=== PATIENT | female | born 1945 | race Hispanic/Latino ===

== ENCOUNTER 2016-09-28 06:30 | Day surgery (SDC) | payer MEDICARE, BC ==
[2016-09-23 08:14] VITALS: BMI 26.0
[2016-09-28] MEDS ORDERED: Phenylephrine 10 mg/ml Inj ONE (07:57)
[2016-09-28] MEDS ORDERED: Propofol 10 mg/ml Inj (20 ML) ONE ×2 (07:57→08:54)
[2016-09-28] MEDS ORDERED: ePHEDrine 50 mg/ml Inj ONE (07:57)
[2016-09-28] MEDS ORDERED: Sodium Chloride 0.9% 1,000 ML IV SCH (08:15)
[2016-09-28 09:30] VITALS: TEMP 98
[2016-09-28 10:14] VITALS: BP 128/48; PULSE 56; RESP 17; O2SAT 99
--- NOTE | 2016-09-29 12:30 | CP.PCM.PN ---
Subjective - Date & Time of Evaluation Date of Evaluation: 09/29/16 Time of Evaluation: 12:25 - Subjective Subjective: Briefly, 71 y/o F presenting on 09-28-16 for EGD and Colonoscopy. Error in anesthesia narcotic documentation. During procedure patient was administered a total of 100mcg fentanyl, however, only 50mcg was documented on the anesthesia record. This discrepancy was brought to my attention by dept. of pharmacy. Objective - Vital Signs/Intake and Output Vital Signs (last 24 hours): Temp Pulse Resp BP Pulse Ox 98 F 56 L 17 128/48 L 99 09/28/16 09:57 09/28/16 09:57 09/28/16 09:57 09/28/16 09:57 09/28/16 09:57
== END 2016-09-28 11:00 | disposition home or self-care (01) ==
LOC: ENDO 06:30
PROVIDERS: ATTEND Internal Medicine
DX: D12.3 Benign neoplasm of transverse colon (principal); D17.79 Benign lipomatous neoplasm of other sites; K64.8 Other hemorrhoids; Z85.038 Personal history of other malignant neoplasm of large intestine; K29.50 Unspecified chronic gastritis without bleeding; K21.9 Gastro-esophageal reflux disease without esophagitis; R00.2 Palpitations; R26.9 Unspecified abnormalities of gait and mobility; M70.70 Other bursitis of hip, unspecified hip; E04.9 Nontoxic goiter, unspecified; M20.10 Hallux valgus (acquired), unspecified foot; E78.2 Mixed hyperlipidemia; J20.9 Acute bronchitis, unspecified; Z86.010 Personal history of colon polyps; Z80.3 Family history of malignant neoplasm of breast; Z87.891 Personal history of nicotine dependence; F15.90 Other stimulant use, unspecified, uncomplicated; Z88.1 Allergy status to other antibiotic agents; Z88.0 Allergy status to penicillin; Z88.8 Allergy status to other drugs, medicaments and biological substances; K80.20 Calculus of gallbladder without cholecystitis without obstruction
CPT/HCPCS: 43239; 45380; 88305; 88312; 88342; J2001; J2370; J2704; J3010; J7040 ×2

== ENCOUNTER 2016-11-30 11:22 | Inpatient (IN) | payer MEDICARE, BC ==
[2016-11-30 11:22] VITALS: BMI 26.0
[2016-11-30] MEDS ORDERED: guaiFENesin 200 mg/10 ml Syrup UD PO STA (12:01)
[2016-11-30] MEDS ORDERED: Levalbuterol 1.25 MG/3 ML Inhal Soln UD IH STA ×2 (12:01→12:02)
[2016-11-30] MEDS ORDERED: Ipratropium 0.02% Inhal Soln (0.5 mg/2.5 ml) UD IH STA (12:01)
--- NOTE | 2016-11-30 12:07 | ED PDOC ---
Arrival/HPI - General Chief Complaint: Cough, Cold, Congestion Time Seen by Provider: 11/30/16 11:25 Historian: Patient - History of Present Illness Narrative History of Present Illness (Text): 11/30/16 11:53 A 71 year old female, whose past medical history includes rheumatoid arthritis, COPD, osteoporosis, and osteoarthritis b/l knees, presents to the emergency department complaining of progressive shortness of breath and persistent cough for 1 month. Patient reports symptoms have worsened for the past few days. Patient notes also experiencing dizziness, but denies of any chest pain, abdominal pain, nausea, vomiting, visual changes, or any other complaints. Also patient mentions she recently finished her Medrol dose pack but has had no relief. She has also used prescribed cough syrup and abx without relief. PMD: Dr. Austin Time/Duration: Other (has had symptoms for 1 month, worsened past few days) Symptom Onset: Gradual Symptom Course: Unchanged Context: Home Past Medical History - Provider Review Nursing Documentation Reviewed: Yes - Infectious Disease Hx of Infectious Diseases: None - Tetanus Immunization Tetanus Immunization: Unknown - Cardiac Hx Pacemaker: No - Pulmonary Hx Respiratory Disorders: Yes Hx Asthma: Yes Hx Bronchitis: Yes Hx Chronic Obstructive Pulmonary Disease (COPD): Yes Hx Respiratory Tract Infection: Yes - Neurological Hx Neurological Disorder: No - HEENT Hx HEENT Disorder: No - Renal Hx Renal Disorder: No - Endocrine/Metabolic Hx Endocrine Disorders: No - Hematological/Oncological Hx Blood Transfusions: No Hx Blood Transfusion Reaction: No - Integumentary Hx Dermatological Disorder: No - Musculoskeletal/Rheumatological Hx Musculoskeletal Disorders: Yes (OSTEO/RA) - Gastrointestinal Hx Gastrointestinal Disorders: No - Genitourinary/Gynecological Hx Genitourinary Disorders: No - Psychiatric Hx Emotional Abuse: No Hx Physical Abuse: No Hx Substance Use: No - Surgical History Other/Comment: breast tumor removed 30 yrs ago - Anesthesia Hx Anesthesia Reactions: Yes (VOMITING) Hx Malignant Hyperthermia: No - Suicidal Assessment Feels Threatened In Home Enviroment: No Family/Social History - Physician Review Nursing Documentation Reviewed: Yes Family/Social History: No Known Family HX Smoking Status: Former Smoker Hx Alcohol Use: No (OCC/NONE SINCE 06/2016) Hx Substance Use: No Allergies/Home Meds Allergies/Adverse Reactions: Allergies clarithromycin [From Biaxin] Allergy (Severe, Verified 09/23/16 08:17) ANAPHYLAXIS Penicillins Allergy (Severe, Verified 09/23/16 08:17) ANAPHYLAXIS SEAFOOD Allergy (Intermediate, Uncoded 09/23/16 08:17) RASH SHELLFISH Allergy (Intermediate, Uncoded 09/23/16 08:17) RASH Home Medications: Home Meds Medication Instructions Recorded Confirmed Alprazolam [Xanax] 0.5 mg PO PRN PRN 09/23/16 11/30/16 Ascorbic Acid [Vitamin C] 1,000 mg PO DAILY 09/23/16 11/30/16 Aspirin [Adult Low Dose Aspirin EC] 81 mg PO DAILY 09/23/16 11/30/16 Folic Acid 1 mg PO DAILY 09/23/16 11/30/16 Methotrexate 20 mg PO FRI 09/23/16 11/30/16 Omeprazole 20 mg PO QAM 09/23/16 11/30/16 Vitamin B Complex [Vitamin B 1 tab PO DAILY 09/23/16 11/30/16 Complex] Albuterol 0.083% [Albuterol 0.083% 2.5 mg INH TID 11/30/16 11/30/16 Inhal Lia (2.5 mg/3 ml) UD] Review of Systems - Physician Review All systems were reviewed & negative as marked: Yes - Review of Systems Eyes: absent: Vision Changes Respiratory: SOB (progressive shortness of breath ), Cough (persistent coughing) Cardiovascular: absent: Chest Pain Gastrointestinal: absent: Abdominal Pain, Nausea, Vomiting Neurological: Dizziness. absent: Headache Physical Exam Vital Signs Reviewed: Yes Vital Signs Temp Pulse Resp BP Pulse Ox 11/30/16 13:28 81 24 142/90 98 11/30/16 11:33 28 H 99 11/30/16 11:32 98.0 F 106 H 17 153/89 H 100 Temperature: Afebrile Blood Pressure: Hypertensive Pulse: Tachycardic Respiratory Rate: Tachypneic Appearance: Positive for: Other (patient appears anxious with persistent cough) Pain Distress: None Mental Status: Positive for: Alert and Oriented X 3 - Systems Exam Head: Present: Atraumatic, Normocephalic Pupils: Present: PERRL Conjunctiva: Present: Normal Mouth: Present: Moist Mucous Membranes Pharnyx: Present: Normal. No: ERYTHEMA, EXUDATE Neck: Present: Normal Range of Motion Respiratory/Chest: Present: Clear to Auscultation, Decreased Breath Sounds ( slightly). No: Respiratory Distress, Accessory Muscle Use Cardiovascular: Present: Normal S1, S2, Tachycardic. No: Murmurs Abdomen: Present: Normal Bowel Sounds. No: Tenderness, Distention, Peritoneal Signs Back: Present: Normal Inspection Upper Extremity: Present: Normal Inspection. No: Cyanosis, Edema Lower Extremity: Present: Normal Inspection. No: Edema Neurological: Present: GCS=15, CN II-XII Intact, Speech Normal Skin: Present: Warm, Dry, Normal Color. No: Rashes Psychiatric: Present: Alert, Oriented x 3, Normal Insight, Normal Concentration Medical Decision Making ED Course and Treatment: 11/30/16 11:58 Impression: 71 year old female with progressive shortness of breath and persistent cough. Differential Diagnosis included but are not limited to: URI vs. Pneumonia vs. COPD Exacerbation vs. Methotrexate Pulmonary Toxicity Plan: -- EKG -- Chest CT -- Labs -- Xanax -- Robitussin -- Atrovert -- Xopenex -- Medrol -- Reassess and disposition Prior Visits: Notes and results from previous visits were reviewed Progress Notes: EKG: Ordered, reviewed, and independently interpreted the EKG. Rate : 74 BPM Rhythm : NSR Interpretation : No ST-segment elevations or depressions, no T-wave inversions, normal intervals. Comparison : No previous EKG for comparison. 11/30/2016 13:[address] IMPRESSION: No interstitial abnormality identified. Small focal infiltrate in the anterior left lower lobe, minimally increased in prominence compared to examination of 03/13/2013, accounting for differences in technique. Given the lack of significant interval slubber frame changer greater than 3 years, this is unlikely to represent a bronchoalveolar cell carcinoma. Nevertheless, continued surveillance is advised. Dictator : Wing Paris MD 11/30/16 13:58 Patient with noted history; minimal improvement despite nebs; CT as noted with small infiltrate - will place on iv steroids given that she failed outpatient steroid therapy. Will add abx. Per Dr. Tomlinson, the patient is to be placed in the hospital as he discussed with hospitalist previously. Case discussed with Dr. Rivera. - Lab Interpretations Lab Results: 11/30/16 12:21 11/30/16 12:21 Lab Results 11/30/16 12:21: Sodium 141, Potassium 4.2, Chloride 104, Carbon Dioxide 21, Anion Gap 20, BUN 21, Creatinine 0.8, Est GFR ( Amer) > 60, Est GFR (Non- Af Amer) > 60, Random Glucose 100, Calcium 9.8, Magnesium 1.8, Total Bilirubin 0.5, AST 32, ALT 36, Alkaline Phosphatase 72, Lactate Dehydrogenase 445, Total Creatine Kinase 144, Troponin I < 0.01, NT-Pro-B Natriuret Pep 176, Total Protein 7.5, Albumin 4.5, Globulin 3.0, Albumin/Globulin Ratio 1.5, Lipase 180 11/30/16 12:21: PT 10.6, INR 0.98, APTT 22.6 L 11/30/16 12:21: WBC 13.2 H, RBC 4.39, Hgb 13.3, Hct 39.1, MCV 89.1, MCH 30.3, MCHC 34.0, RDW 13.6, Plt Count 367, MPV 8.7, Gran % 78.0 H, Lymph % (Auto) 16.6 L, [facility] [place] [facility] % (Auto) 4.9, Eos % (Auto) 0.2 L, Baso % (Auto) 0.3, Gran # 10.25 H, Lymph # 2.2, [facility] [place] [facility] # 0.7 H, Eos # 0.0, Baso # 0.04 I have reviewed the lab results: Yes - RAD Interpretation Radiology Orders: 11/30/16 12:02 CHEST W/O & HIGH RES CHEST [CT] Stat - Medication Orders Current Medication Orders: Levofloxacin/Dextrose (Levaquin 750mg) 750 mg IVPB ONCE STA Stop: 11/30/16 14:03 Discontinued Medications Alprazolam (Xanax) 0.125 mg PO STAT STA PRN Reason: Protocol Stop: 11/30/16 12:03 Last Admin: 11/30/16 12:31 Dose: Guaifenesin (Robitussin) 600 mg PO ONCE STA Stop: 11/30/16 12:02 Last Admin: 11/30/16 12:22 Dose: 600 mg Ipratropium Brohard (Atrovent) 0.5 mg IH STAT STA Stop: 11/30/16 12:02 Last Admin: 11/30/16 13:12 Dose: 0.5 mg Levalbuterol HCl (Xopenex) 1.25 mg IH STAT STA Stop: 11/30/16 12:02 Last Admin: 11/30/16 12:23 Dose: 1.25 mg Levalbuterol HCl (Xopenex) 1.25 mg IH STAT STA Stop: 11/30/16 12:03 Last Admin: 11/30/16 13:27 Dose: 1.25 mg Methylprednisolone (Solu-Medrol) 125 mg IVP STAT STA Stop: 11/30/16 12:02 Last Admin: 11/30/16 12:22 Dose: 125 mg IVP Administration Document 11/30/16 12:22 [place] (Rec: 11/30/16 12:22 [facility]) Charges for Administration # of IVP Administrations 1 - Scribe Statement The provider has reviewed the documentation as recorded by the Katty Macdonald Provider Scribe Attestation: All medical record entries made by the Scribe were at my direction and personally dictated by me. I have reviewed the chart and agree that the record accurately reflects my personal performance of the history, physical exam, medical decision making, and the department course for this patient. I have also personally directed, reviewed, and agree with the discharge instructions and disposition. Disposition/Present on Arrival - Present on Arrival Any Indicators Present on Arrival: No History of DVT/PE: No History of Uncontrolled Diabetes: No Urinary Catheter: No History of Decub. Ulcer: No History Surgical Site Infection Following: None - Disposition Have Diagnosis and Disposition been Completed?: Yes Diagnosis: Dyspnea, COPD exacerbation Disposition: HOSPITALIZED Disposition Time: 13:45 Patient Plan: Observation Condition: FAIR Referrals: Maribel Ornelas MD [Primary Care Provider] - Follow up with primary Forms: [employer] (Kazakh)
[2016-11-30 12:28] LABS: BASO # 0.04 K/mm3 (0.0-2.0); BASO % 0.3 % (0.0-3.0); EOS % 0.2 % (1.5-5.0); GRAN # 10.25 (1.4-6.5); HEMATOCRIT 39.1 % (36.0-48.0); LYMPH # 2.2 (1.2-3.4); LYMPH % 16.6 % (22.0-35.0); MEAN CELL VOLUME 89.1 fl (80.0-105.0); MEAN CORPUSCULAR HEMOGLOBIN 30.3 pg (25.0-35.0); MEAN PLATELET VOLUME 8.7 fl (7.0-11.0); MONO # 0.7 (0.1-0.6); MONO % 4.9 % (1.0-6.0); RED CELL DISTRIBUTION WIDTH 13.6 % (11.5-14.5); WHITE BLOOD COUNT 13.2 10^3/ul (4.5-11.0)
[2016-11-30 12:36] LABS: ALB/GLOB RATIO 1.5 (1.1-1.8); ALKALINE PHOSPHATASE 72 U/L (38-126); ALT/SGPT 36 U/L (7-56); AST/SGOT 32 U/L (14-36); BILIRUBIN,TOTAL 0.5 mg/dL (0.2-1.3); BLOOD UREA NITROGEN 21 mg/dL (7-21); CALCIUM 9.8 mg/dL (8.4-10.5); CARBON DIOXIDE 21 mmol/L (21-33); CHLORIDE 104 mmol/L (98-107); GFR AFRICAN-AMERICAN > 60; GLUCOSE,RANDOM 100 mg/dL (70-110); INR 0.98 (0.93-1.08); LIPASE 180 U/L (23-300); MAGNESIUM 1.8 mg/dL (1.7-2.2); PARTIAL THROMBOPLASTIN TIME 22.6 Seconds (23.7-30.8); POTASSIUM 4.2 mmol/L (3.6-5.0); SODIUM 141 mmol/L (132-148); TOTAL PROTEIN 7.5 g/dL (5.8-8.3)
[2016-11-30 12:48] LABS: TROPONIN I < 0.01 ng/mL
--- NOTE | 2016-11-30 13:36 | CT ---
PROCEDURE: CT Chest without contrast HISTORY: cough, dyspnea, RA, COPD; r/o methotrexate toxicit COMPARISON: 03/13/2013 TECHNIQUE: Contiguous axial images were obtained through the chest without intravenous contrast enhancement. Sagittal and coronal reconstructions were performed. High-resolution 1.25 mm images were obtained at 2.5 mm intervals. Radiation dose (DLP): mGy-cm. This CT exam was performed using one or more of the following dose reduction techniques: Automated exposure control, adjustment of the mA and/or kV according to patient size, and/or use of iterative reconstruction technique. FINDINGS: LUNGS: Evaluation of the lung parenchyma is somewhat limited due to respiratory motion artifact. Very small focal infiltrate in the anterior left lower lobe (series 2, image 68 through 72). In retrospect, this is seen on examination of 03/13/2013 and has increased only minimally in prominence since that examination. Direct comparison is somewhat limited due to difference in technique and slice thickness. There is no other pulmonary infiltrate identified. There is no evidence of interstitial infiltrate. No interstitial abnormality is identified. MEDIASTINUM: Unremarkable thoracic aorta. No aneurysm. Normal heart size. Coronary arterial calcification. Main pulmonary artery unremarkable. No vascular congestion. No lymphadenopathy. PLEURA: No pleural fluid. No pneumothorax. Bilateral apical pleural thickening is noted, likely postinflammatory. This is grossly unchanged from examination of 03/13/2013. BONES: No fracture. No destructive lesion. UPPER ABDOMEN: Grossly unremarkable. OTHER FINDINGS: None. IMPRESSION: No interstitial abnormality identified. Small focal infiltrate in the anterior left lower lobe, minimally increased in prominence compared to examination of 03/13/2013, accounting for differences in technique. Given the lack of significant interval exchange architect greater than 3 years, this is unlikely to represent a bronchoalveolar cell carcinoma. Nevertheless, continued surveillance is advised. .
[2016-11-30] MEDS ORDERED: levoFLOXacin 750 mg in D5W 150 ML BAG IVPB STA (14:02)
--- NOTE | 2016-11-30 14:37 | CARD ---
APPROVED REPORT EKG Measurement Heart [id number] <Conclusion> Normal sinus rhythm Normal ECG
[2016-11-30] MEDS ORDERED: Levalbuterol 0.63 MG/3 ML Inhal Soln UD IH PRN (15:14)
[2016-11-30] MEDS ORDERED: Benzocaine/Menthol (Cepacol) Lozenge MT PRN (15:24)
--- NOTE | 2016-11-30 15:29 | CP.PCM.HP ---
<Piedad Trevizo - Last Filed: 11/30/16 16:31> History of Present Illness - History of Present Illness History of Present Illness: Patient is a 71 year old female with past medical hx of COPD, GERD, rheumatoid arthritis, osteoporosis was sent to ED by PMD. Patient complaining of 1 month history of productive cough and occasional sore throat. Phelgm was initially clear but is now thick and white. Patient also states that she feels short of breath after walking approx 2 blocks. Patient recently completed Z-pack two weeks ago and completed course of prednisone this morning. Report symptoms have been getting worse which prompted her to see PMD. States having mild headache, no other complaints at this time. Denies fevers, chills, nausea, vomiting, cp, palpitations, abdominal pain, urinary symptoms, changes in bowel habits. Denies any recent travel and sick contacts. Denies hx of intubations. ED Course: Levaquin 750mg, Xopenex, Solumedrol 125mg IVP, Robitussin Allergies: PCN, Biaxin Medications: Methotraxate 1x/week, Symbicort, Nebulizer, Promethazine Medical Hx: COPD, GERD, RA, osteoporosis Surgical Hx: benign tumor removal from R breast, recent colonoscopy/EGD 09/2016 Social Hx: Former smoker, smoked 1-3ppd for 33 years, denies alcohol and drug use; lives alone Family Hx: non-contributory Present on Admission - Present on Admission Any Indicators Present on Admission: No History of DVT/PE: No History of Uncontrolled Diabetes: No Review of Systems - Constitutional Constitutional: absent: Chills, Fever, Weakness - EENT Eyes: absent: Blurred Vision, Change in Vision Ears: Dizziness. absent: Decreased Hearing Nose/Mouth/Throat: Nasal Congestion, Sore Throat. absent: Sinus Pressure, Dysphagia, Facial Pain - Cardiovascular Cardiovascular: absent: Chest Pain, Dyspnea, Lightheadedness, Palpitations - Respiratory Respiratory: Cough, Chest Congestion. absent: Dyspnea, Wheezing, Pain with Coughing - Gastrointestinal Gastrointestinal: absent: Constipation, Diarrhea, Nausea, Vomiting - Genitourinary Genitourinary: absent: Dysuria, Urinary Frequency - Musculoskeletal Musculoskeletal: absent: Numbness, Tingling - Neurological Neurological: Dizziness. absent: Confusion, Numbness, Headaches, Syncope, Weakness - Psychiatric Psychiatric: absent: Anxiety, Depression Past Patient History - Infectious Disease Hx of Infectious Diseases: None - Tetanus Immunizations Tetanus Immunization: Unknown - Past Social History Smoking Status: Former Smoker - CARDIAC Hx Pacemaker: No - PULMONARY Hx Respiratory Disorders: Yes Hx Asthma: Yes Hx Bronchitis: Yes Hx Chronic Obstructive Pulmonary Disease (COPD): Yes Hx Respiratory Tract Infection: Yes - NEUROLOGICAL Hx Neurological Disorder: No - HEENT Hx HEENT Problems: No - RENAL Hx Chronic Kidney Disease: No - ENDOCRINE/METABOLIC Hx Endocrine Disorders: No - HEMATOLOGICAL/ONCOLOGICAL Hx Blood Transfusions: No Hx Blood Transfusion Reaction: No - INTEGUMENTARY Hx Dermatological Problems: No - MUSCULOSKELETAL/RHEUMATOLOGICAL Hx Musculoskeletal Disorders: Yes (OSTEO/RA) - GASTROINTESTINAL Hx Gastrointestinal Disorders: No - GENITOURINARY/GYNECOLOGICAL Hx Genitourinary Disorders: No - PSYCHIATRIC Hx Emotional Abuse: No Hx Physical Abuse: No Hx Substance Use: No - SURGICAL HISTORY Other/Comment: breast tumor removed 30 yrs ago - ANESTHESIA Hx Anesthesia Reactions: Yes (VOMITING) Hx Malignant Hyperthermia: No Meds Allergies/Adverse Reactions: Allergies Allergy/AdvReac Type Severity Reaction Status Date / Time clarithromycin [From Biaxin] Allergy Severe ANAPHYLAXIS Verified 11/30/16 16:25 Penicillins Allergy Severe ANAPHYLAXIS Verified 11/30/16 16:25 SEAFOOD Allergy Intermediate RASH Uncoded 11/30/16 16:25 SHELLFISH Allergy Intermediate RASH Uncoded 11/30/16 16:25 Physical Exam - Constitutional Appears: Well, Non-toxic - Head Exam Head Exam: ATRAUMATIC, NORMAL INSPECTION - Eye Exam Eye Exam: EOMI, Normal appearance Pupil Exam: NORMAL ACCOMODATION, PERRL - ENT Exam ENT Exam: Mucous Membranes Moist Additional comments: Sinuses NTTP - Neck Exam Neck exam: Positive for: Full Rom - Respiratory Exam Respiratory Exam: NORMAL BREATHING PATTERN. absent: Accessory Muscle Use, Rales , Rhonchi - Cardiovascular Exam Cardiovascular Exam: REGULAR RHYTHM, +S1, +S2. absent: Systolic Murmur - GI/Abdominal Exam GI & Abdominal Exam: Normal Bowel Sounds, Soft. absent: Firm, Guarding, Rigid, Tenderness - Extremities Exam Extremities exam: Positive for: normal inspection. Negative for: calf tenderness, tenderness - Back Exam Back exam: NORMAL INSPECTION - Neurological Exam Neurological exam: Alert, CN II-XII Intact, Normal Gait, Oriented x3 - Psychiatric Exam Psychiatric exam: Normal Affect, Normal Mood - Skin Skin Exam: Normal Color, Warm Results - Vital Signs Recent Vital Signs: Last Vital Signs Temp 98.0 F 11/30/16 11:32 Pulse 75 11/30/16 15:00 Resp 18 11/30/16 15:00 BP 138/89 11/30/16 15:00 Pulse Ox 98 11/30/16 15:00 - Labs Result Diagrams: 11/30/16 12:21 11/30/16 12:21 Assessment & Plan - Assessment and Plan (Free Text) Assessment: 71 female with past medical hx COPD, GERD, RA, osteoporosis presents with 1 month history of productive cough Plan: 1. COPD Exacerbation -Continue Levoaquin 750mg daily -Methylprednisone 40mg Q12H -Xopenex Q4H BREA; Q2H prn -Singulair 10mg daily -Flu ordered -Tessalon pearls TID; Cepacol/Lozenges for sore throat prn -Pulmonology consulted, f/u recommendations -CXR on 11/27 showed no active disease -CT Chest 11/30 showing small focal infiltrate in anterior LLL, minimally increase prominence compared to 03/2013 2. Hx of Rheumatoid Arthritis -Continue Methotrexate 3. GI/DVT ppx -Protonix 40mg PO -Heparin 5000U Q12H <Robert Vargas B - Last Filed: 12/01/16 16:30> Results - Vital Signs Recent Vital Signs: Last Vital Signs Temp 97.6 F 12/01/16 01:40 Pulse 82 12/01/16 11:36 Resp 20 12/01/16 06:00 BP 120/65 12/01/16 06:00 Pulse Ox 76 L 12/01/16 06:00 - Labs Result Diagrams: 12/01/16 06:00 12/01/16 06:00 Labs: Laboratory Results - last 24 hr 11/30/16 12/01/16 12/01/16 18:59 06:00 06:00 WBC 14.1 H RBC 4.34 Hgb 13.1 Hct 38.1 MCV 87.8 MCH 30.2 MCHC 34.4 RDW 13.6 Plt Count 355 MPV 8.8 Gran % 75.1 H Lymph % (Auto) 18.6 L Wake % (Auto) 6.1 H Eos % (Auto) 0.1 L Baso % (Auto) 0.1 Gran # 10.56 H Lymph # 2.6 Wake # 0.9 H Eos # 0.0 Baso # 0.01 Sodium 142 Potassium 4.1 Chloride 104 Carbon Dioxide 24 Anion Gap 18 BUN 20 Creatinine 0.7 Est GFR ( Amer) > 60 Est GFR (Non-Af Amer) > 60 Random Glucose 110 Calcium 9.9 Procalcitonin Influenza Typ A,B (EIA) Negative for flu a/b 12/01/16 08:00 WBC RBC Hgb Hct MCV MCH MCHC RDW Plt Count MPV Gran % Lymph % (Auto) Wake % (Auto) Eos % (Auto) Baso % (Auto) Gran # Lymph # Wake # Eos # Baso # Sodium Potassium Chloride Carbon Dioxide Anion Gap BUN Creatinine Est GFR ( Amer) Est GFR (Non-Af Amer) Random Glucose Calcium Procalcitonin 0.05 L Influenza Typ A,B (EIA) Attending/Attestation - Attestation I have personally seen and examined this patient.: Yes I have fully participated in the care of the patient.: Yes I have reviewed all pertinent clinical information: Yes Notes (Text): I have seen and examined the patient at bedside. Agree with the note above with the following additions/ exceptions: Briefly this is 71 year old female with history of COPD, GERD, rheumatoid arthritis, osteoporosis who was sent by PMD for evaluation of worsening of cough, productive sputum, dyspnea and found to have copd exacerbation. Will start Solumedrol, levaquin, tessalon perles, singulair and duonebs. Will consult patients snout puller. Upon discharge patient will follow up with Dr Rivera. Dr Robert Vargas
[2016-12-01] MEDS: Pantoprazole 40 mg EC Tab PO SCH (06:20)
[2016-12-01 07:08] LABS: BASO # 0.01 K/mm3 (0.0-2.0); BASO % 0.1 % (0.0-3.0); EOS % 0.1 % (1.5-5.0); GRAN # 10.56 (1.4-6.5); GRAN % 75.1 % (50.0-68.0); HEMATOCRIT 38.1 % (36.0-48.0); LYMPH # 2.6 (1.2-3.4); LYMPH % 18.6 % (22.0-35.0); MEAN CELL VOLUME 87.8 fl (80.0-105.0); MEAN CORPUSCULAR HEMOGLOBIN 30.2 pg (25.0-35.0); MEAN CORPUSCULAR HGB CONC 34.4 g/dl (31.0-37.0); MEAN PLATELET VOLUME 8.8 fl (7.0-11.0); MONO # 0.9 (0.1-0.6); MONO % 6.1 % (1.0-6.0); RED CELL DISTRIBUTION WIDTH 13.6 % (11.5-14.5); WHITE BLOOD COUNT 14.1 10^3/ul (4.5-11.0)
[2016-12-01 07:16] LABS: BLOOD UREA NITROGEN 20 mg/dL (7-21); CALCIUM 9.9 mg/dL (8.4-10.5); CARBON DIOXIDE 24 mmol/L (21-33); CHLORIDE 104 mmol/L (98-107); GFR AFRICAN-AMERICAN > 60; GLUCOSE,RANDOM 110 mg/dL (70-110); POTASSIUM 4.1 mmol/L (3.6-5.0); SODIUM 142 mmol/L (132-148)
[2016-12-01] MEDS: levoFLOXacin 750 mg in D5W 150 ML BAG IVPB SCH (09:04)
[2016-12-01] MEDS: MethylPREDNISolone 40 mg Vial IVP SCH ×2 (09:04→21:22)
[2016-12-01] MEDS: Levalbuterol 0.63 MG/3 ML Inhal Soln UD IH SCH ×3 (11:31→21:15)
[2016-12-01] MEDS: Budesonide 0.5 mg/2 ml Inhal Susp UD IH SCH ×2 (11:31→21:15)
--- NOTE | 2016-12-01 14:52 | CON ---
REASON FOR CONSULTATION: Chronic obstructive pulmonary disease. REFERRING PHYSICIAN: Dr. Carrie Vargas HISTORY OF PRESENT ILLNESS: The patient is a 71-year-old female, with past medical history significant for chronic obstructive pulmonary disease, asthma, recurrent bronchitis, rheumatoid arthritis, who presents to the hospital with worsening shortness of breath at rest, dyspnea on exertion, cough, and sputum production for the past 3 days. The patient does state that these symptoms have been present for the past few weeks, but became much worse over the past 3 days. There is no history of chest pain, coughing up of blood, or chest pain - made worse with deep respirations. There is no history of temperatures, chills or infectious exposure. There is no history of night sweats, weight loss or appetite change prior to the above events. No history of leg or calf pains. No history of syncope or diaphoresis. No history of recent travel or trauma. REVIEW OF SYSTEMS: No history of nausea, vomiting or diarrhea. No acute urinary symptoms. No new neurologic or musculoskeletal complaints. Rest of the review of systems is negative. ALLERGIES: BIAXIN, PENICILLIN AND SHELLFISH. SOCIAL HISTORY: Positive for tobacco, negative for alcohol. FAMILY HISTORY: No inheritable diseases. HOME MEDICATIONS: Include albuterol via nebulizer, omeprazole, methotrexate, aspirin, vitamin C, and Xanax. PHYSICAL EXAMINATION: GENERAL: The patient appears comfortable this morning. She is not short of breath at rest. She is not using accessory muscles for breathing. VITAL SIGNS: Temperature is 97.6, pulse 76, respirations 18, blood pressure 120/65. Oxygen saturation on room air is 97%. HEENT: Normocephalic, atraumatic. NECK: No JVD. CARDIOVASCULAR: Positive S1, S2. No S3 gallop. LUNGS: Decreased breath sounds at the bases. Minimal rhonchi. Minimal wheezing. EXTREMITIES: No clubbing, cyanosis or edema. Calves are nontender to palpation. GI: Abdomen is soft, nontender, nondistended. Bowel sounds are positive. SKIN: No acute rash. NEUROLOGIC: Exam limited at the present time. PERTINENT LABORATORY DATA: CAT scan of the chest was done yesterday and reviewed. There is no significant change compared to the CAT scan of 03/13/2013. There is a very small infiltrate noted in the left lower lobe - ??possibly mildly increased from the previous exam - not significant. CBC: White count 14.1, hemoglobin 13.1, hematocrit 38.1, platelets of 355. Complete metabolic profile is completely within normal limits. IMPRESSION: 1. Acute bronchitis. 2. Chronic obstructive pulmonary disease. 3. Asthma. 4. Rheumatoid arthritis. PLAN: The patient presents to [facility] with worsening pulmonary symptoms for the past 3 days. As above, the patient has been experiencing more pulmonary symptoms (compared to her baseline) over the past few weeks. But again, her symptoms became much worse over the past 3 days, which prompted her to come to the emergency room. I did review the CAT scan of the chest-- as above. It is not significantly changed from the CAT scan done in 2013. I will order a stat procalcitonin level, to try and discern whether we are dealing with an acute pneumonia or not. Cultures have been ordered, and we will analyzed when feasible. On physical exam, the patient is in [id number] bronchospasm. There is no significant alveolar-arterial gradient. Oxygen saturation on room air is 97%. I will continue the current nebulizer treatments,antibiotics and intravenous steroids for now. I will also add inhaled Pulmicort this morning. The patient does feel better this morning, and is clinically improved. Additional pulmonary intervention will be based on the above results, as well as the clinical status of the patient. I will discuss the above with the attending physician this morning. Thank you very much for this pulmonary consultation. Angelito Olmstead MD MTDD
--- NOTE | 2016-12-01 14:53 | CP.PCM.PN ---
<Piedad Trevizo - Last Filed: 12/01/16 14:56> Subjective - Date & Time of Evaluation Date of Evaluation: 12/01/16 Time of Evaluation: 07:20 - Subjective Subjective: Hospitalist Service Progress Note: Patient seen and examined at bedside. Per nursing no acute events overnight. Patient still coughing, no phelgm. Reports still occasionally short of breath. Ambulating and tolerating diet. Denies headaches, dizziness, cp, palpitations, abdominal pain, urinary symptoms. Objective - Vital Signs/Intake and Output Vital Signs (last 24 hours): Temp Pulse Resp BP Pulse Ox 97.6 F 82 20 120/65 76 L 12/01/16 01:40 12/01/16 11:36 12/01/16 06:00 12/01/16 06:00 12/01/16 06:00 - Medications Medications: Current Medications Benzocaine/Menthol (Cepacol Sore Throat) 1 aron MT Q2H PRN PRN Reason: Sore Throat Benzonatate (Tessalon Perles) 100 mg PO TID [facility] Last Admin: 12/01/16 13:04 Dose: 100 mg Budesonide (Pulmicort Respules) 0.5 mg IH [id number] [facility] Last Admin: 12/01/16 11:31 Dose: 0.5 mg Folic Acid (Folic Acid) 1 mg PO DAILY [facility] Heparin Sodium (Porcine) (Heparin) 5,000 units SC Q12 [facility] PRN Reason: Protocol Last Admin: 12/01/16 09:03 Dose: 5,000 units Levalbuterol HCl (Xopenex) 0.63 mg IH [id number] [facility] Last Admin: 12/01/16 11:31 Dose: 0.63 mg Levalbuterol HCl (Xopenex) 0.63 mg IH Q2H PRN PRN Reason: Shortness of Breath Levofloxacin/Dextrose (Levaquin 750mg) 750 mg IVPB DAILY [facility] Last Admin: 12/01/16 09:04 Dose: 750 mg Methylprednisolone (Solu-Medrol) 40 mg IVP Q12H [facility] Last Admin: 12/01/16 09:04 Dose: 40 mg Montelukast Sodium (Singulair) 10 mg PO HS [facility] Last Admin: 11/30/16 21:17 Dose: 10 mg Pantoprazole Sodium (Protonix Ec Tab) 40 mg PO 0600 [facility] Last Admin: 12/01/16 06:20 Dose: 40 mg Pneumococcal Polyvalent Vaccine (Pneumovax 23 Vaccine) 0.5 ml IM .ONCE ONE Stop: 12/03/16 10:01 - Labs Labs: 12/01/16 06:00 12/01/16 06:00 PT 10.6 Seconds (9.9-11.8) 11/30/16 12:21 INR 0.98 (0.93-1.08) 11/30/16 12:21 APTT 22.6 Seconds (23.7-30.8) L 11/30/16 12:21 - Constitutional Appears: Well, No Acute Distress - Head Exam Head Exam: ATRAUMATIC, NORMAL INSPECTION - Eye Exam Eye Exam: EOMI, Normal appearance Pupil Exam: NORMAL ACCOMODATION - ENT Exam ENT Exam: Mucous Membranes Moist - Neck Exam Neck Exam: Full ROM - Respiratory Exam Respiratory Exam: Clear to Ausculation Bilateral, NORMAL BREATHING PATTERN. absent: Rales, Rhonchi, Wheezes - Cardiovascular Exam Cardiovascular Exam: REGULAR RHYTHM, +S1, +S2 - GI/Abdominal Exam GI & Abdominal Exam: Soft, Normal Bowel Sounds. absent: Guarding, Rigid, Tenderness - Back Exam Back Exam: NORMAL INSPECTION - Neurological Exam Neurological Exam: Alert, Awake, Normal Gait, Oriented x3 Neuro motor strength exam: Left Upper Extremity: 5, Right Upper Extremity: 5, Left Lower Extremity: 5, Right Lower Extremity: 5 - Psychiatric Exam Psychiatric exam: Anxious, Normal Affect, Normal Mood - Skin Skin Exam: Dry, Normal Color, Warm Assessment and Plan - Assessment and Plan (Free Text) Assessment: 71 female with past medical hx COPD, GERD, RA, osteoporosis presents with 1 month history of productive cough Plan: 1. COPD Exacerbation -Continue Levoaquin 750mg daily -Methylprednisone 40mg Q12H, will continue taper per pulm recs -Xopenex Q4H BREA; Q2H prn -Singulair 10mg daily; Pulmicort -Flu a/b negative, blood cx negative x 24 hours -Tessalon pearls TID; Cepacol/Lozenges for sore throat prn -Pulmonology consulted, f/u recommendations -CXR on 11/27 showed no active disease -CT Chest 11/30 showing small focal infiltrate in anterior LLL, minimally increase prominence compared to 03/2013 2. Hx of Rheumatoid Arthritis -Continue Methotrexate 3. GI/DVT ppx -Protonix 40mg PO -Heparin 5000U Q12H <Robert Vargas - Last Filed: 12/01/16 16:33> Objective - Vital Signs/Intake and Output Vital Signs (last 24 hours): Temp Pulse Resp BP Pulse Ox 97.6 F 82 20 120/65 76 L 12/01/16 01:40 12/01/16 11:36 12/01/16 06:00 12/01/16 06:00 12/01/16 06:00 - Medications Medications: Current Medications Benzocaine/Menthol (Cepacol Sore Throat) 1 aron MT Q2H PRN PRN Reason: Sore Throat Benzonatate (Tessalon Perles) 100 mg PO TID [facility] Last Admin: 12/01/16 13:04 Dose: 100 mg Budesonide (Pulmicort Respules) 0.5 mg IH [id number] [facility] Last Admin: 12/01/16 11:31 Dose: 0.5 mg Folic Acid (Folic Acid) 1 mg PO DAILY [facility] Heparin Sodium (Porcine) (Heparin) 5,000 units SC Q12 [facility] PRN Reason: Protocol Last Admin: 12/01/16 09:03 Dose: 5,000 units Levalbuterol HCl (Xopenex) 0.63 mg IH [id number] [facility] Last Admin: 12/01/16 15:45 Dose: 0.63 mg Levalbuterol HCl (Xopenex) 0.63 mg IH Q2H PRN PRN Reason: Shortness of Breath Levofloxacin/Dextrose (Levaquin 750mg) 750 mg IVPB DAILY [facility] Last Admin: 12/01/16 09:04 Dose: 750 mg Methylprednisolone (Solu-Medrol) 40 mg IVP Q12H [facility] Last Admin: 12/01/16 09:04 Dose: 40 mg Montelukast Sodium (Singulair) 10 mg PO HS [facility] Last Admin: 11/30/16 21:17 Dose: 10 mg Pantoprazole Sodium (Protonix Ec Tab) 40 mg PO 0600 [facility] Last Admin: 12/01/16 06:20 Dose: 40 mg Pneumococcal Polyvalent Vaccine (Pneumovax 23 Vaccine) 0.5 ml IM .ONCE ONE Stop: 12/03/16 10:01 - Labs Labs: 12/01/16 06:00 12/01/16 06:00 PT 10.6 Seconds (9.9-11.8) 11/30/16 12:21 INR 0.98 (0.93-1.08) 11/30/16 12:21 APTT 22.6 Seconds (23.7-30.8) L 11/30/16 12:21 Attending/Attestation - Attestation I have personally seen and examined this patient.: Yes I have fully participated in the care of the patient.: Yes I have reviewed all pertinent clinical information, including history, physical exam and plan: Yes Notes (Text): 12/01/16 16:31 I have seen and examined the patient at bedside. Agree with the note above with the following additions/ exceptions: Briefly this is 71 year old female with history of COPD, GERD, rheumatoid arthritis, osteoporosis who was sent by PMD for evaluation of worsening of cough, productive sputum, dyspnea and found to have acute bronchitis/ copd exacerbation. Will continue Solumedrol, levaquin, tessalon perles, singulair and duonebs. Pulmonary consult appreciated. Pulmicort was added. Upon discharge patient will follow up with Dr Rivera. Dr Robert Vargas
[2016-12-02] MEDS: Levalbuterol 0.63 MG/3 ML Inhal Soln UD IH SCH ×7 (00:17→23:40)
[2016-12-02] MEDS: Pantoprazole 40 mg EC Tab PO SCH (05:35)
[2016-12-02] MEDS: Budesonide 0.5 mg/2 ml Inhal Susp UD IH SCH ×2 (07:28→19:56)
[2016-12-02] MEDS: levoFLOXacin 750 mg in D5W 150 ML BAG IVPB SCH (09:36)
[2016-12-02] MEDS: MethylPREDNISolone 40 mg Vial IVP SCH ×2 (09:36→21:51)
[2016-12-02 11:24] LABS: HEMATOCRIT 39.5 % (36.0-48.0); MEAN CELL VOLUME 89.4 fl (80.0-105.0); MEAN CORPUSCULAR HEMOGLOBIN 30.8 pg (25.0-35.0); MEAN CORPUSCULAR HGB CONC 34.4 g/dl (31.0-37.0); MEAN PLATELET VOLUME 8.8 fl (7.0-11.0); RED CELL DISTRIBUTION WIDTH 13.6 % (11.5-14.5); WHITE BLOOD COUNT 14.5 10^3/ul (4.5-11.0)
--- NOTE | 2016-12-02 11:46 | PN ---
PULMONARY NOTE DATE: SUBJECTIVE: The patient appears comfortable this morning. She is not short of breath at rest. OBJECTIVE: VITAL SIGNS: Temperature is 98.0, pulse 78, respirations 18, blood pressure 141/71. Oxygen saturation on room air is 98%. HEENT: Normocephalic, atraumatic. NECK: No JVD. CARDIOVASCULAR: Positive S1, S2. No S3 gallop. LUNGS: Decreased breath sounds at the bases. Less rhonchi. Less wheezing. EXTREMITIES: No clubbing, cyanosis or edema. Calves are nontender to palpation. GASTROINTESTINAL: Abdomen is soft, nontender and nondistended. Bowel sounds are positive. SKIN: No acute rash. NEUROLOGIC: Limited at the present time. PERTINENT LABORATORY DATA: Procalcitonin was done yesterday. It is negative at 0.05. IMPRESSION: 1. Acute bronchitis. 2. Chronic obstructive pulmonary disease. 3. Asthma. 4. Rheumatoid arthritis. PLAN: The patient appears much more comfortable this morning. She is not short of breath at rest. She states she is feeling much better overall. On physical exam, her bronchospasm is certainly less. In addition, the oxygen saturation on room air is now 98%. I will continue the current nebulizer treatments and decrease the intravenous steroids this morning. The patient remains on antibiotic therapy. As above, the procalcitonin is negative. This negative value does point away from the diagnosis of acute pneumonia. Cultures are so far negative at 24 hours. Clinical status of the patient is significantly improved. I have advised the patient to be out of bed as much as possible today. I will discuss the above with Dr. Vargas. Angelito Olmstead MD MTDD
--- NOTE | 2016-12-02 17:04 | CP.PCM.PN ---
<Piedad Trevizo - Last Filed: 12/02/16 17:06> Subjective - Date & Time of Evaluation Date of Evaluation: 12/02/16 Time of Evaluation: 07:55 - Subjective Subjective: Hospitalist Service Progress Note: Patient seen and examined at bedside. Per nursing no acute events overnight. Patient is doing well, reports coughing and shortness of breath are improving. Ambulating and tolerating diet. Offers on other complaints at this time. Denies headaches, dizziness, cp, palpitations, abdominal pain, urinary symptoms. Objective - Vital Signs/Intake and Output Vital Signs (last 24 hours): Temp Pulse Resp BP Pulse Ox 98.2 F 81 20 136/79 97 12/02/16 16:00 12/02/16 16:00 12/02/16 16:00 12/02/16 16:00 12/02/16 16:00 Intake and Output: 12/02/16 12/02/16 06:59 18:59 Intake Total 780 1020 Output Total 2 Balance 780 1018 - Medications Medications: Current Medications Benzocaine/Menthol (Cepacol Sore Throat) 1 aron MT Q2H PRN PRN Reason: Sore Throat Benzonatate (Tessalon Perles) 100 mg PO TID [facility] Last Admin: 12/02/16 13:24 Dose: Not Given Budesonide (Pulmicort Respules) 0.5 mg IH [id number] [facility] Last Admin: 12/02/16 07:28 Dose: 0.5 mg Folic Acid (Folic Acid) 1 mg PO DAILY [facility] Last Admin: 12/02/16 09:36 Dose: 1 mg Heparin Sodium (Porcine) (Heparin) 5,000 units SC Q12 [facility] PRN Reason: Protocol Last Admin: 12/02/16 09:36 Dose: Not Given Levalbuterol HCl (Xopenex) 0.63 mg IH [id number] [facility] Last Admin: 12/02/16 15:44 Dose: 0.63 mg Levalbuterol HCl (Xopenex) 0.63 mg IH Q2H PRN PRN Reason: Shortness of Breath Levofloxacin/Dextrose (Levaquin 750mg) 750 mg IVPB DAILY [facility] Last Admin: 12/02/16 09:36 Dose: 750 mg Methylprednisolone (Solu-Medrol) 30 mg IVP Q12 [facility] Last Admin: 12/02/16 09:36 Dose: 30 mg Montelukast Sodium (Singulair) 10 mg PO HS [facility] Last Admin: 12/01/16 21:22 Dose: 10 mg Pantoprazole Sodium (Protonix Ec Tab) 40 mg PO 0600 [facility] Last Admin: 12/02/16 05:35 Dose: 40 mg Pneumococcal Polyvalent Vaccine (Pneumovax 23 Vaccine) 0.5 ml IM .ONCE ONE Stop: 12/03/16 10:01 - Labs Labs: 12/02/16 11:00 PT 10.6 Seconds (9.9-11.8) 11/30/16 12:21 INR 0.98 (0.93-1.08) 11/30/16 12:21 APTT 22.6 Seconds (23.7-30.8) L 11/30/16 12:21 - Constitutional Appears: Non-toxic, No Acute Distress - Head Exam Head Exam: ATRAUMATIC, NORMAL INSPECTION - Eye Exam Eye Exam: EOMI, Normal appearance Pupil Exam: NORMAL ACCOMODATION, PERRL - ENT Exam ENT Exam: Mucous Membranes Moist - Neck Exam Neck Exam: Full ROM - Respiratory Exam Respiratory Exam: Clear to Ausculation Bilateral, NORMAL BREATHING PATTERN. absent: Rales, Rhonchi, Wheezes - Cardiovascular Exam Cardiovascular Exam: REGULAR RHYTHM, +S1, +S2 - GI/Abdominal Exam GI & Abdominal Exam: Soft, Normal Bowel Sounds. absent: Guarding, Rigid, Tenderness, Rebound - Extremities Exam Extremities Exam: Full ROM, Normal Inspection - Back Exam Back Exam: NORMAL INSPECTION - Neurological Exam Neurological Exam: Alert, Awake, Oriented x3 - Psychiatric Exam Psychiatric exam: Normal Affect, Normal Mood - Skin Skin Exam: Dry, Normal Color, Warm Assessment and Plan - Assessment and Plan (Free Text) Assessment: 71 female with past medical hx COPD, GERD, RA, osteoporosis presents with 1 month history of productive cough Plan: 1. COPD Exacerbation -Continue Levoaquin 750mg daily -Methylprednisone 30mg Q12H, will continue taper per pulm recs -Leukocytosis likely 2/2 steroid use -Xopenex Q4H BREA; Q2H prn -Singulair 10mg daily; Pulmicort -Flu a/b negative, blood cx negative x 48 hours; procal <0.05 -Tessalon pearls TID; Cepacol/Lozenges for sore throat prn -Pulmonology consulted, f/u recommendations -CXR on 11/27 showed no active disease -CT Chest 11/30 showing small focal infiltrate in anterior LLL, minimally increase prominence compared to 03/2013 2. Hx of Rheumatoid Arthritis -Continue Methotrexate 3. GI/DVT ppx -Protonix 40mg PO -Heparin 5000U Q12H <Robert Vargas - Last Filed: 12/03/16 17:17> Objective - Vital Signs/Intake and Output Vital Signs (last 24 hours): Temp Pulse Resp BP Pulse Ox 97.9 F 68 18 107/67 95 12/03/16 07:59 12/03/16 07:59 12/03/16 07:59 12/03/16 07:59 12/03/16 07:59 Intake and Output: 12/03/16 12/03/16 06:59 18:59 Intake Total 840 Output Total 0 Balance 840 - Labs Labs: 12/03/16 06:00 PT 10.6 Seconds (9.9-11.8) 11/30/16 12:21 INR 0.98 (0.93-1.08) 11/30/16 12:21 APTT 22.6 Seconds (23.7-30.8) L 11/30/16 12:21 Attending/Attestation - Attestation I have personally seen and examined this patient.: Yes I have fully participated in the care of the patient.: Yes I have reviewed all pertinent clinical information, including history, physical exam and plan: Yes Notes (Text): I have seen and examined the patient at bedside. Agree with the note above with the following additions/ exceptions: Briefly this is 71 year old female with history of COPD, GERD, rheumatoid arthritis, osteoporosis who was sent by PMD for evaluation of worsening of cough, productive sputum, dyspnea and found to have acute bronchitis/ copd exacerbation. Will continue Solumedrol taper, levaquin, tessalon perles, singulair and duonebs. Pulmonary consult appreciated. Pulmicort was added. Upon discharge patient will follow up with Dr Rivera. Dr Robert Vargas
[2016-12-03 06:29] LABS: HEMATOCRIT 39.2 % (36.0-48.0); MEAN CELL VOLUME 89.1 fl (80.0-105.0); MEAN CORPUSCULAR HEMOGLOBIN 29.8 pg (25.0-35.0); MEAN CORPUSCULAR HGB CONC 33.4 g/dl (31.0-37.0); MEAN PLATELET VOLUME 8.8 fl (7.0-11.0); RED CELL DISTRIBUTION WIDTH 13.9 % (11.5-14.5); WHITE BLOOD COUNT 12.5 10^3/ul (4.5-11.0)
[2016-12-03] MEDS: Pantoprazole 40 mg EC Tab PO SCH (06:39)
[2016-12-03 07:59] VITALS: BP 107/67; PULSE 68; RESP 18; TEMP 97.9; O2SAT 95
[2016-12-03] MEDS: Budesonide 0.5 mg/2 ml Inhal Susp UD IH SCH (08:29)
[2016-12-03] MEDS: Levalbuterol 0.63 MG/3 ML Inhal Soln UD IH SCH ×2 (08:29→11:15)
[2016-12-03] MEDS ORDERED: Pneumococcal 23-Valent Vaccine IM ONE (10:00)
[2016-12-03] MEDS: levoFLOXacin 750 mg in D5W 150 ML BAG IVPB SCH (10:03)
--- NOTE | 2016-12-03 15:41 | PN ---
DATE: 12/03/2016 SUBJECTIVE: The patient appears very comfortable this morning. She is not short of breath at rest. PHYSICAL EXAMINATION: VITAL SIGNS: Temperature is 98.4, pulse 79, respirations 18, blood pressure 132/79. Oxygen saturation on room air is 98%. HEENT: Normocephalic, atraumatic. No JVD. CARDIOVASCULAR: Positive S1, S2. No S3 gallop. LUNGS: Improved breath sounds at the bases. Very minimal/less rhonchi. No wheezing this morning. EXTREMITIES: No clubbing, cyanosis or edema. Calves are nontender to palpation. GI: Abdomen is soft, nontender and nondistended. Bowel sounds are positive. SKIN: No acute rash. NEUROLOGIC: Exam limited at the present time. IMPRESSION: 1. Acute bronchitis. 2. Chronic obstructive pulmonary disease. 3. Asthma. 4. Rheumatoid arthritis. PLAN: The patient appears very comfortable this morning. She is not short of breath at rest. She is much less dyspneic on exertion. She states she is feeling much, much better overall. On physical exam, her bronchospasm continues to resolve. In addition, the oxygen saturation on room air is now 98%. I will continue the current nebulizer treatments and change to oral steroids this morning. The patient remains on intravenous antibiotic therapy. There are no temperatures noted. The leukocytosis is resolving Clinical status of the patient is significantly improved. I will discuss the above with the attending physician this morning. Angelito Olmstead MD MTDJeremy
--- NOTE | 2016-12-03 16:14 | CP.PCM.DIS ---
<Piedad Trevizo - Last Filed: 12/03/16 16:22> Provider - Provider Date of Admission: 12/01/16 14:49 Attending physician: Robert Vargas MD Primary care physician: Maribel Austin MD Consults: Pulmonary: Aysha Time Spent in preparation of Discharge (in minutes): 32 Hospital Course - Lab Results Lab Results: Most Recent Lab Values WBC 12.5 10^3/ul (4.5-11.0) H 12/03/16 06:00 RBC 4.40 10^6/uL (3.5-6.1) 12/03/16 06:00 Hgb 13.1 g/dL (12.0-16.0) 12/03/16 06:00 Hct 39.2 % (36.0-48.0) 12/03/16 06:00 MCV 89.1 fl (80.0-105.0) 12/03/16 06:00 MCH 29.8 pg (25.0-35.0) 12/03/16 06:00 MCHC 33.4 g/dl (31.0-37.0) 12/03/16 06:00 RDW 13.9 % (11.5-14.5) 12/03/16 06:00 Plt Count 369 10^3/uL (120.0-450.0) 12/03/16 06:00 MPV 8.8 fl (7.0-11.0) 12/03/16 06:00 Gran % 75.1 % (50.0-68.0) H 12/01/16 06:00 Lymph % (Auto) 18.6 % (22.0-35.0) L 12/01/16 06:00 Snyder % (Auto) 6.1 % (1.0-6.0) H 12/01/16 06:00 Eos % (Auto) 0.1 % (1.5-5.0) L 12/01/16 06:00 Baso % (Auto) 0.1 % (0.0-3.0) 12/01/16 06:00 Gran # 10.56 (1.4-6.5) H 12/01/16 06:00 Lymph # 2.6 (1.2-3.4) 12/01/16 06:00 Snyder # 0.9 (0.1-0.6) H 12/01/16 06:00 Eos # 0.0 (0.0-0.7) 12/01/16 06:00 Baso # 0.01 K/mm3 (0.0-2.0) 12/01/16 06:00 PT 10.6 Seconds (9.9-11.8) 11/30/16 12:21 INR 0.98 (0.93-1.08) 11/30/16 12:21 APTT 22.6 Seconds (23.7-30.8) L 11/30/16 12:21 Sodium 142 mmol/L (132-148) 12/01/16 06:00 Potassium 4.1 mmol/L (3.6-5.0) 12/01/16 06:00 Chloride 104 mmol/L (98-107) 12/01/16 06:00 Carbon Dioxide 24 mmol/L (21-33) 12/01/16 06:00 Anion Gap 18 (10-20) 12/01/16 06:00 BUN 20 mg/dL (7-21) 12/01/16 06:00 Creatinine 0.7 mg/dL (0.5-1.4) 12/01/16 06:00 Est GFR ( Amer) > 60 12/01/16 06:00 Est GFR (Non-Af Amer) > 60 12/01/16 06:00 Random Glucose 110 mg/dL (70-110) 12/01/16 06:00 Calcium 9.9 mg/dL (8.4-10.5) 12/01/16 06:00 Magnesium 1.8 mg/dL (1.7-2.2) 11/30/16 12:21 Total Bilirubin 0.5 mg/dL (0.2-1.3) 11/30/16 12:21 AST 32 U/L (14-36) 11/30/16 12:21 ALT 36 U/L (7-56) 11/30/16 12:21 Alkaline Phosphatase 72 U/L (38-126) 11/30/16 12:21 Lactate Dehydrogenase 445 U/L (333-699) 11/30/16 12:21 Total Creatine Kinase 144 U/L (35-230) 11/30/16 12:21 Troponin I < 0.01 ng/mL 11/30/16 12:21 NT-Pro-B Natriuret Pep 176 pg/mL (0-450) 11/30/16 12:21 Total Protein 7.5 g/dL (5.8-8.3) 11/30/16 12:21 Albumin 4.5 g/dL (3.0-4.8) 11/30/16 12:21 Globulin 3.0 gm/dL 11/30/16 12:21 Albumin/Globulin Ratio 1.5 (1.1-1.8) 11/30/16 12:21 Lipase 180 U/L (23-300) 11/30/16 12:21 Procalcitonin 0.05 NG/ML (0.19-0.49) L 12/01/16 08:00 Influenza Typ A,B (EIA) Negative for flu a/b (NEGATIVE) 11/30/16 18:59 - Hospital Course Hospital Course: Patient is a 71 year old female with history of COPD, GERD, rheumatoid arthritis , osteoporosis who was sent by PMD for evaluation of worsening of cough, productive sputum, dyspnea. Patient was found to have acute bronchitis/copd exacerbation. CT Chest 11/30 showing small focal infiltrate in anterior LLL, minimally increase prominence compared to 03/2013. Patient was started on Solumedrol, Levaquin, xopenex, singulair, tessalon pearls. Pulmonary was consulted and on the case. Pulmicort was added. During admission patient did well, dyspnea and cough improved. . Patient was ambulating and tolerating diet. Blood cx showed no growth. Upon discharge patient will follow up with Dr Rivera. Patient will also follow up with Dr Olmstead in 1-2 weeks. Prescriptions for Levaquin 750mg daily x 7 days and Prednisone taper were given. All questions and concerns were addressed. Discharge Exam - Head Exam Head Exam: ATRAUMATIC, NORMAL INSPECTION - Eye Exam Eye Exam: EOMI, Normal appearance Pupil Exam: NORMAL ACCOMODATION, PERRL - ENT Exam ENT Exam: Mucous Membranes Moist - Respiratory Exam Respiratory Exam: Clear to PA & Lateral, NORMAL BREATHING PATTERN, UNREMARKABLE. absent: Rales, Rhonchi, Wheezes - Cardiovascular Exam Cardiovascular Exam: REGULAR RHYTHM, +S1, +S2 - GI/Abdominal Exam GI & Abdominal Exam: Normal Bowel Sounds, Soft, Unremarkable - Extremities Exam Extremities exam: normal inspection - Back Exam Back exam: NORMAL INSPECTION - Neurological Exam Neurological exam: Alert, CN II-XII Intact, Normal Gait, Oriented x3 - Psychiatric Exam Psychiatric exam: Normal Affect, Normal Mood - Skin Skin Exam: Dry, Normal Color Discharge Plan - Discharge Medications Prescriptions: Levofloxacin [Levaquin] 750 mg PO DAILY #7 tablet levoFLOXacin 750 mg in D5W [Levaquin 750MG] 750 mg PO DAILY #7 predniSONE [predniSONE Tab] 40 mg PO DAILY #8 tab predniSONE [predniSONE Tab] See Taper PO DAILY #8 tab - Follow Up Plan Condition: FAIR Disposition: HOME/ ROUTINE Instructions: COPD (Chronic Obstructive Pulmonary Disease) (DC), Dyspnea (GEN) Additional Instructions: Patient is clear for discharge. Patient to follow up with Dr Olmstead in 1-2 weeks. Please continue Prednisone taper and antibiotics as prescribed. Referrals: Maribel Ornelas MD [Primary Care Provider] - <Robert Vargas - Last Filed: 12/03/16 17:18> Provider - Provider Date of Admission: 12/01/16 14:49 Attending physician: Robert Vargas MD Primary care physician: Maribel Austin MD Time Spent in preparation of Discharge (in minutes): 35 Hospital Course - Lab Results Lab Results: Most Recent Lab Values WBC 12.5 10^3/ul (4.5-11.0) H 12/03/16 06:00 RBC 4.40 10^6/uL (3.5-6.1) 12/03/16 06:00 Hgb 13.1 g/dL (12.0-16.0) 12/03/16 06:00 Hct 39.2 % (36.0-48.0) 12/03/16 06:00 MCV 89.1 fl (80.0-105.0) 12/03/16 06:00 MCH 29.8 pg (25.0-35.0) 12/03/16 06:00 MCHC 33.4 g/dl (31.0-37.0) 12/03/16 06:00 RDW 13.9 % (11.5-14.5) 12/03/16 06:00 Plt Count 369 10^3/uL (120.0-450.0) 12/03/16 06:00 MPV 8.8 fl (7.0-11.0) 12/03/16 06:00 Gran % 75.1 % (50.0-68.0) H 12/01/16 06:00 Lymph % (Auto) 18.6 % (22.0-35.0) L 12/01/16 06:00 Snyder % (Auto) 6.1 % (1.0-6.0) H 12/01/16 06:00 Eos % (Auto) 0.1 % (1.5-5.0) L 12/01/16 06:00 Baso % (Auto) 0.1 % (0.0-3.0) 12/01/16 06:00 Gran # 10.56 (1.4-6.5) H 12/01/16 06:00 Lymph # 2.6 (1.2-3.4) 12/01/16 06:00 Snyder # 0.9 (0.1-0.6) H 12/01/16 06:00 Eos # 0.0 (0.0-0.7) 12/01/16 06:00 Baso # 0.01 K/mm3 (0.0-2.0) 12/01/16 06:00 PT 10.6 Seconds (9.9-11.8) 11/30/16 12:21 INR 0.98 (0.93-1.08) 11/30/16 12:21 APTT 22.6 Seconds (23.7-30.8) L 11/30/16 12:21 Sodium 142 mmol/L (132-148) 12/01/16 06:00 Potassium 4.1 mmol/L (3.6-5.0) 12/01/16 06:00 Chloride 104 mmol/L (98-107) 12/01/16 06:00 Carbon Dioxide 24 mmol/L (21-33) 12/01/16 06:00 Anion Gap 18 (10-20) 12/01/16 06:00 BUN 20 mg/dL (7-21) 12/01/16 06:00 Creatinine 0.7 mg/dL (0.5-1.4) 12/01/16 06:00 Est GFR ( Amer) > 60 12/01/16 06:00 Est GFR (Non-Af Amer) > 60 12/01/16 06:00 Random Glucose 110 mg/dL (70-110) 12/01/16 06:00 Calcium 9.9 mg/dL (8.4-10.5) 12/01/16 06:00 Magnesium 1.8 mg/dL (1.7-2.2) 11/30/16 12:21 Total Bilirubin 0.5 mg/dL (0.2-1.3) 11/30/16 12:21 AST 32 U/L (14-36) 11/30/16 12:21 ALT 36 U/L (7-56) 11/30/16 12:21 Alkaline Phosphatase 72 U/L (38-126) 11/30/16 12:21 Lactate Dehydrogenase 445 U/L (333-699) 11/30/16 12:21 Total Creatine Kinase 144 U/L (35-230) 11/30/16 12:21 Troponin I < 0.01 ng/mL 11/30/16 12:21 NT-Pro-B Natriuret Pep 176 pg/mL (0-450) 11/30/16 12:21 Total Protein 7.5 g/dL (5.8-8.3) 11/30/16 12:21 Albumin 4.5 g/dL (3.0-4.8) 11/30/16 12:21 Globulin 3.0 gm/dL 11/30/16 12:21 Albumin/Globulin Ratio 1.5 (1.1-1.8) 11/30/16 12:21 Lipase 180 U/L (23-300) 11/30/16 12:21 Procalcitonin 0.05 NG/ML (0.19-0.49) L 12/01/16 08:00 Influenza Typ A,B (EIA) Negative for flu a/b (NEGATIVE) 11/30/16 18:59 Attending/Attestation - Attestation I have personally seen and examined this patient.: Yes I have fully participated in the care of the patient.: Yes I have reviewed all pertinent clinical information, including history, physical exam and plan: Yes Notes (Text): I have seen and examined the patient at bedside. Agree with the note above with the following additions/ exceptions: Briefly this is 71 year old female with history of COPD, GERD, rheumatoid arthritis, osteoporosis who was sent by PMD for evaluation of worsening of cough, productive sputum, dyspnea and found to have acute bronchitis/ copd exacerbation. Patient is feeling much better. Denies any complaints. Will continue prednisone taper, pulmicort and levaquin. Pulmonary consult appreciated. Upon discharge patient will follow up with Dr Rivera. Dr Robert Vargas
== END 2016-12-03 13:07 | disposition home or self-care (01) | DRG 192 ==
LOC: ED 11:22 → ERH 13:48 → CCU 12-01 01:11 → 5RNO 12-01 10:52 → OBSVTOIN 12-01 14:49
PROVIDERS: ADMIT Hospitalist; ATTEND Hospitalist
PROC: 3E0F7GC Introduction of Other Therapeutic Substance into Respiratory Tract, Via Natural or Artificial Opening (ICD-10-PCS; principal; 2016-12-01)
DX: J44.1 Chronic obstructive pulmonary disease with (acute) exacerbation (principal); J20.9 Acute bronchitis, unspecified; J44.0 Chronic obstructive pulmonary disease with (acute) lower respiratory infection; K21.9 Gastro-esophageal reflux disease without esophagitis; M06.9 Rheumatoid arthritis, unspecified; M81.0 Age-related osteoporosis without current pathological fracture; M17.0 Bilateral primary osteoarthritis of knee; Z87.891 Personal history of nicotine dependence; Z79.82 Long term (current) use of aspirin

== ENCOUNTER 2017-04-01 13:11 | Emergency (ER) | payer MEDICARE, BC ==
[2017-04-01 13:28] VITALS: BMI 25.2
[2017-04-01] MEDS ORDERED: Sodium Chloride 0.9% 1,000 ML IV STA (13:29)
[2017-04-01] MEDS ORDERED: Albuterol-Ipratrop 3 mg / 0.5 (3 ml) UD IH STA (13:29)
[2017-04-01] MEDS ORDERED: Albuterol-Ipratrop 3 mg / 0.5 (3 ml) UD ONE (13:31)
[2017-04-01 13:41] VITALS: RESP 18
--- NOTE | 2017-04-01 13:43 | ED PDOC ---
Arrival/HPI - General Time Seen by Provider: 04/01/17 13:18 Historian: Patient - History of Present Illness Narrative History of Present Illness (Text): 04/01/17 13:25 A 71 year old female, whose past medical history includes rheumatoid arthritis, osteoarthritis, osteoporosis b/l knees, and COPD, presents to the emergency department complaining of cough and congestion. Patient reports she was given antibiotics for cough last week and finished taking it 5 days ago. Patient felt better afterwards. 2 days ago, she began experiencing congestion and fever ( measurement of 104), and symptoms worsened yesterday. She states calling her PMD this morning and was told to take medication for symptoms. Also, patient was directed by PMD that if symptoms did not subside to visit the ER for possible dehydration and have CXR done. Patient notes no other complaints at this time. PMD: Dr. Austin Past Medical History - Provider Review Nursing Documentation Reviewed: Yes - Infectious Disease Hx of Infectious Diseases: None - Tetanus Immunization Tetanus Immunization: Unknown - Reproductive Menopause: No - Cardiac Hx Pacemaker: No - Pulmonary Hx Respiratory Disorders: Yes Hx Asthma: Yes Hx Bronchitis: Yes Hx Chronic Obstructive Pulmonary Disease (COPD): Yes Hx Respiratory Tract Infection: Yes - Neurological Hx Neurological Disorder: No - HEENT Hx HEENT Disorder: No - Renal Hx Renal Disorder: No - Endocrine/Metabolic Hx Endocrine Disorders: No - Hematological/Oncological Hx Blood Disorders: No - Integumentary Hx Dermatological Disorder: No - Musculoskeletal/Rheumatological Hx Musculoskeletal Disorders: Yes (OSTEO/RA) Hx Falls: No - Gastrointestinal Hx Gastrointestinal Disorders: No - Genitourinary/Gynecological Hx Genitourinary Disorders: No - Psychiatric Hx Emotional Abuse: No Hx Physical Abuse: No Hx Substance Use: No - Surgical History Other/Comment: breast tumor removed 30 yrs ago - Anesthesia Hx Anesthesia Reactions: Yes (VOMITING) Hx Malignant Hyperthermia: No - Suicidal Assessment Feels Threatened In Home Enviroment: No Family/Social History - Physician Review Nursing Documentation Reviewed: Yes Family/Social History: No Known Family HX Smoking Status: Former Smoker Hx Alcohol Use: No Hx Substance Use: No Allergies/Home Meds Allergies/Adverse Reactions: Allergies clarithromycin [From Biaxin] Allergy (Severe, Verified 11/30/16 16:25) ANAPHYLAXIS Penicillins Allergy (Severe, Verified 11/30/16 16:25) ANAPHYLAXIS SEAFOOD Allergy (Intermediate, Uncoded 11/30/16 16:25) RASH SHELLFISH Allergy (Intermediate, Uncoded 11/30/16 16:25) RASH Home Medications: Home Meds Medication Instructions Recorded Confirmed Alprazolam [Xanax] 0.5 mg PO PRN PRN 09/23/16 04/01/17 Ascorbic Acid [Vitamin C] 1,000 mg PO DAILY 09/23/16 04/01/17 Aspirin [Adult Low Dose Aspirin EC] 81 mg PO DAILY 09/23/16 04/01/17 Folic Acid 1 mg PO DAILY 09/23/16 04/01/17 Methotrexate 20 mg PO FRI 09/23/16 04/01/17 Omeprazole 20 mg PO QAM 09/23/16 04/01/17 Vitamin B Complex [Vitamin B 1 tab PO DAILY 09/23/16 04/01/17 Complex] Albuterol 0.083% [Albuterol 0.083% 2.5 mg INH TID 11/30/16 04/01/17 Inhal Lia (2.5 mg/3 ml) UD] Review of Systems - Physician Review All systems were reviewed & negative as marked: Yes - Review of Systems Constitutional: Fevers (measurement of 104) ENT: Sinus Congestion Respiratory: Cough Physical Exam Vital Signs Temp Pulse Resp BP Pulse Ox 04/01/17 15:30 99.9 F H 85 18 98/70 L 100 04/01/17 13:40 101.1 F H 86 18 95/72 L 99 - Systems Exam Head: Present: Atraumatic, Normocephalic Pupils: Present: PERRL Extroacular Muscles: Present: EOMI Conjunctiva: Present: Normal Mouth: Present: Moist Mucous Membranes Neck: Present: Normal Range of Motion Respiratory/Chest: Present: Clear to Auscultation, Good Air Exchange. No: Respiratory Distress, Accessory Muscle Use Cardiovascular: Present: Regular Rate and Rhythm, Normal S1, S2. No: Murmurs Abdomen: Present: Normal Bowel Sounds. No: Tenderness, Distention, Peritoneal Signs Back: Present: Normal Inspection Upper Extremity: Present: Normal Inspection. No: Cyanosis, Edema Lower Extremity: Present: Normal Inspection. No: Edema Neurological: Present: GCS=15, CN II-XII Intact, Speech Normal Skin: Present: Warm, Dry, Normal Color. No: Rashes Psychiatric: Present: Alert, Oriented x 3, Normal Insight, Normal Concentration Medical Decision Making ED Course and Treatment: 04/01/17 13:29 Impression: 71 year old female with cough, congestion, and fever. Physical exam is unremarkable. Plan: -- Chest X-Ray -- Labs -- Tylenol -- Duoneb -- Toradol -- IV Fluids -- Blood Culture -- Venous Blood Gas -- Rapid Flu Test Prior Visits: Patient was last seen here in the emergency department on 2016 for progressive shortness of breath and persistent cough. Patient was admitted. Progress Notes: 04/01/2017 15:12 Chest X-Ray IMPRESSION: No active disease. Dictator: Walker Weston MD - Lab Interpretations Lab Results: 04/01/17 14:16 04/01/17 14:16 Lab Results 04/01/17 14:16: Sodium 134, Chloride 100, Potassium 3.9, Carbon Dioxide 23, Anion Gap 14, BUN 17, Creatinine 0.7, Est GFR ( Amer) > 60, Est GFR (Non- Af Amer) > 60, Random Glucose 97, Calcium 9.5, Total Bilirubin 0.4, AST 36, ALT 37, Alkaline Phosphatase 62, Total Protein 7.0, Albumin 3.9, Globulin 3.1, Albumin/Globulin Ratio 1.3 04/01/17 14:16: pO2 44, VBG pH 7.39, VBG pCO2 45.0, VBG HCO3 27.2, VBG Total CO2 28.6 H, VBG O2 Sat (Calc) 85.2 H, VBG Base Excess 1.7, VBG Potassium 3.8, Sodium 134.0, Chloride 102.0, Glucose 105, Lactate 1.4, FiO2 21.0, Venous Blood Potassium 3.8 04/01/17 14:16: PT 13.8 H, INR 1.20 H 04/01/17 14:16: Influenza Typ A,B (EIA) Pos for influenza a H 04/01/17 14:16: WBC 6.4 D, RBC 3.90, Hgb 12.0, Hct 36.0, MCV 92.3 D, MCH 30.8 , MCHC 33.3, RDW 13.6, Plt Count 251, MPV 9.0, Gran % 70.9 H, Lymph % (Auto) 18.9 L, [place] % (Auto) 9.7 H, Eos % (Auto) 0.2 L, Baso % (Auto) 0.3, Gran # 4.54 , Lymph # 1.2, [place] # 0.6, Eos # 0.0, Baso # 0.02 I have reviewed the lab results: Yes - RAD Interpretation Radiology Orders: 04/01/17 13:29 CHEST PORTABLE [RAD] Stat - Medication Orders Current Medication Orders: Discontinued Medications Acetaminophen (Tylenol 325mg Tab) 975 mg PO STAT STA Stop: 04/01/17 13:30 Last Admin: 04/01/17 13:47 Dose: 975 mg Albuterol/Ipratropium (Duoneb 3 Mg/0.5 Mg (3 Ml) Ud) 6 ml IH STAT STA Stop: 04/01/17 13:30 Last Admin: 04/01/17 13:45 Dose: 6 ml Sodium Chloride (Sodium Chloride 0.9%) 1,000 mls @ 999 mls/hr IV .Q1H1M STA Stop: 04/01/17 14:29 Last Admin: 04/01/17 14:20 Dose: 999 mls/hr eMAR Start Stop Document 04/01/17 14:20 (Rec: 04/01/17 14:26 [place] [id number]) Intravenous Solution Start Date 04/01/17 Start Time 14:20 Ketorolac Tromethamine (Toradol) 30 mg IVP STAT STA Stop: 04/01/17 13:30 Last Admin: 04/01/17 13:47 Dose: 30 mg MAR Pain Assessment Document 04/01/17 13:47 (Rec: 04/01/17 13:47 [place] [id number]) Pain Reassessment Is this a pain reassessment? Yes Sleep Is patient sleeping during reassessment? 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 - Scribe Statement The provider has reviewed the documentation as recorded by the Katty Macdonald Provider Scribe Attestation: All medical record entries made by the Scribe were at my direction and personally dictated by me. I have reviewed the chart and agree that the record accurately reflects my personal performance of the history, physical exam, medical decision making, and the department course for this patient. I have also personally directed, reviewed, and agree with the discharge instructions and disposition. Disposition/Present on Arrival - Present on Arrival Any Indicators Present on Arrival: No History of DVT/PE: No History of Uncontrolled Diabetes: No Urinary Catheter: No History of Decub. Ulcer: No History Surgical Site Infection Following: None - Disposition Have Diagnosis and Disposition been Completed?: Yes Diagnosis: Influenza A Disposition: HOME/ ROUTINE Disposition Time: 15:29 (Spoke With Her Doctor) Patient Plan: Discharge Condition: GOOD Discharge Instructions (ExitCare): Influenza (ED) Additional Instructions: Mrs Sarah Bullock you got the flu. I know it is awful. Take your tamiflu. Continue your other medicines. Tylenol for fever, Advil for bodyaches. Return to us if worse. Follow up with your doctor on Tuesday. DRINK PLENTY OF FLUIDS so that you do not get dehydrated! Consider getting the flu shot next fall. Vj- Laith Zaldivar Referrals: Maribel Ornelas MD [Primary Care Provider] - Follow up with primary Forms: [employer] ([place]qi)
[2017-04-01 14:39] LABS: BASO # 0.02 K/mm3 (0.0-2.0); BASO % 0.3 % (0.0-3.0); EOS % 0.2 % (1.5-5.0); GRAN # 4.54 (1.4-6.5); GRAN % 70.9 % (50.0-68.0); LYMPH # 1.2 (1.2-3.4); LYMPH % 18.9 % (22.0-35.0); MEAN CELL VOLUME 92.3 fl (80.0-105.0); MEAN CORPUSCULAR HEMOGLOBIN 30.8 pg (25.0-35.0); MEAN CORPUSCULAR HGB CONC 33.3 g/dl (31.0-37.0); MONO # 0.6 (0.1-0.6); MONO % 9.7 % (1.0-6.0); RBC 3.9 10^6/uL (3.5-6.1); RED CELL DISTRIBUTION WIDTH 13.6 % (11.5-14.5); WHITE BLOOD COUNT 6.4 10^3/ul (4.5-11.0)
[2017-04-01 14:42] LABS: ALB/GLOB RATIO 1.3 (1.1-1.8); ALBUMIN 3.9 g/dL (3.0-4.8); ALT/SGPT 37 U/L (7-56); AST/SGOT 36 U/L (14-36); BLOOD UREA NITROGEN 17 mg/dL (7-21); CALCIUM 9.5 mg/dL (8.4-10.5); GFR AFRICAN-AMERICAN > 60; GFR NON-AFRICAN AMERICAN > 60; VENOUS BLOOD GAS BASE EXCESS 1.7 mmol/L (0.0-2.0); VENOUS BLOOD GAS PO2 44 mm/Hg (30-55); VENOUS BLOOD PH 7.39 (7.32-7.43)
[2017-04-01 14:44] LABS: INR 1.2 (0.93-1.08); PROTHROMBIN TIME 13.8 SECONDS (9.4-12.5)
--- NOTE | 2017-04-01 15:14 | RAD ---
HISTORY: Cough COMPARISON: Chest radiograph dated 11/27/2016. FINDINGS: LUNGS: Biapical pleural-parenchymal scarring. No active pulmonary disease. PLEURA: No significant pleural effusion identified, no pneumothorax apparent. CARDIOVASCULAR: Atherosclerotic aortic calcifications. Cardiomediastinal silhouette within normal limits. OSSEOUS STRUCTURES: Unchanged. VISUALIZED UPPER ABDOMEN: Normal. OTHER FINDINGS: None. IMPRESSION: No active disease.
[2017-04-01 15:51] VITALS: BP 98/70; PULSE 85; TEMP 99.9; O2SAT 100
== END 2017-04-01 15:44 | disposition home or self-care (01) ==
LOC: ED 13:11
DX: J09.X2 Influenza due to identified novel influenza A virus with other respiratory manifestations (principal); Z87.891 Personal history of nicotine dependence
CPT/HCPCS: 71045; 80053; 82803; 85025; 85610; 87040; 87804; 94640; 96374; 99284; J1885; J7040

== ENCOUNTER 2017-08-21 10:24 | Emergency (ER) | payer MEDICARE, BC ==
[2017-08-21 10:24] VITALS: BMI 25.2
--- NOTE | 2017-08-21 10:48 | ED PDOC ---
Arrival/HPI - General Time Seen by Provider: 08/21/17 10:40 Historian: Patient - History of Present Illness Narrative History of Present Illness (Text): 08/21/17 10:48 71 year old female, with past medical history of rheumatoid arthritis, osteoarthritis, osteoporosis b/l knees, herniated disc, and COPD, presents to the Emergency department complaining of right hip discomfort since this morning. Patient states she was sitting on her porch swing for a long time yesterday which may have caused the pain. Patient denies symptoms similar to history of herniated disc and states that she has been pain free for 3 years due to chiropractic treatment. Patient informs increased discomfort with active motion of the right leg and informs limited weight tolerance on the right foot. Patient denies any trauma, numbness in the foot, incontinence, saddle anesthesia, back pain, fever, chills, nausea, vomiting, diarrhea, abdominal pain , chest pain, shortness of breath or any other complaints. Patient presents to the Emergency department for medical evaluation. PMD: Dr. Austin Time/Duration: 24 hours Symptom Onset: Gradual Symptom Course: Unchanged Quality: Aching Activities at Onset: Light Context: Home Past Medical History - Provider Review Nursing Documentation Reviewed: Yes - Infectious Disease Hx of Infectious Diseases: None - Tetanus Immunization Tetanus Immunization: Unknown - Cardiac Hx Pacemaker: No - Pulmonary Hx Respiratory Disorders: Yes Hx Asthma: Yes Hx Bronchitis: Yes Hx Chronic Obstructive Pulmonary Disease (COPD): Yes Hx Respiratory Tract Infection: Yes - Neurological Hx Neurological Disorder: No - HEENT Hx HEENT Disorder: No - Renal Hx Renal Disorder: No - Endocrine/Metabolic Hx Endocrine Disorders: No - Hematological/Oncological Hx Blood Disorders: No - Integumentary Hx Dermatological Disorder: No - Musculoskeletal/Rheumatological Hx Musculoskeletal Disorders: Yes (OSTEO/RA) Hx Falls: No - Gastrointestinal Hx Gastrointestinal Disorders: No - Genitourinary/Gynecological Hx Genitourinary Disorders: No - Psychiatric Hx Emotional Abuse: No Hx Physical Abuse: No Hx Substance Use: No - Surgical History Other/Comment: breast tumor removed 30 yrs ago - Anesthesia Hx Anesthesia: Yes Hx Anesthesia Reactions: Yes (VOMITING) Hx Malignant Hyperthermia: No - Suicidal Assessment Feels Threatened In Home Enviroment: No Family/Social History - Physician Review Nursing Documentation Reviewed: Yes Family/Social History: No Known Family HX Smoking Status: Former Smoker Hx Alcohol Use: No Hx Substance Use: No Allergies/Home Meds Allergies/Adverse Reactions: Allergies clarithromycin [From Biaxin] Allergy (Severe, Verified 11/30/16 16:25) ANAPHYLAXIS Penicillins Allergy (Severe, Verified 11/30/16 16:25) ANAPHYLAXIS SEAFOOD Allergy (Intermediate, Uncoded 11/30/16 16:25) RASH SHELLFISH Allergy (Intermediate, Uncoded 11/30/16 16:25) RASH Home Medications: Home Meds Medication Instructions Recorded Confirmed Methotrexate 20 mg PO Tue09/23/16 08/21/17 Review of Systems - Physician Review All systems were reviewed & negative as marked: Yes - Review of Systems Constitutional: Normal. absent: Fevers Eyes: Normal ENT: Normal Respiratory: Normal. absent: SOB Cardiovascular: Normal. absent: Chest Pain Gastrointestinal: Normal. absent: Abdominal Pain, Stool Changes, Diarrhea, Nausea, Vomiting Genitourinary Female: Normal. absent: Urine Output Changes Musculoskeletal: Other (right hip [place]om[place]). absent: Back Pain Skin: Normal Neurological: Normal Endocrine: Normal Hemo/Lymphatic: Normal Psychiatric: Normal Physical Exam Vital Signs Reviewed: Yes Vital Signs Temp Pulse Resp BP Pulse Ox 08/21/17 10:25 98.3 F 87 20 162/70 H 100 Temperature: Afebrile Blood Pressure: Hypertensive Pulse: Regular Respiratory Rate: Normal Appearance: Positive for: Well-Appearing, Non-Toxic, Comfortable Pain Distress: None Mental Status: Positive for: Alert and Oriented X 3 - Systems Exam Head: Present: Atraumatic, Normocephalic Pupils: Present: PERRL Extroacular Muscles: Present: EOMI Conjunctiva: Present: Normal Neck: Present: Normal Range of Motion Respiratory/Chest: Present: Clear to Auscultation, Good Air Exchange. No: Respiratory Distress, Accessory Muscle Use Cardiovascular: Present: Regular Rate and Rhythm, Normal S1, S2. No: Murmurs Abdomen: No: Tenderness, Distention, Peritoneal Signs Back: Present: Other (Tenderness to the anterior superior iliac spine. No saddle anesthesia.). No: Midline Tenderness, Paraspinal Tenderness, Pain with Leg Raise Upper Extremity: Present: Normal Inspection. No: Cyanosis, Edema Lower Extremity: Present: Normal ROM ([place] with active motion of the right leg.). No: Edema Neurological: Present: GCS=15, CN II-XII Intact, Speech Normal Skin: Present: Warm, Dry, Normal Color. No: Rashes Psychiatric: Present: Alert, Oriented x 3, Normal Insight, Normal Concentration Medical Decision Making ED Course and Treatment: 08/21/17 10:50 Impression: 71 year old female presents to the Emergency department for right hip discomfort. Plan: -- Toradol -- X-ray of right hip -- Reassess and disposition Prior Visits: Notes and results from previous visits were reviewed. Progress Notes: 08/21/17 11:18 Patient denied X-ray being performed. Requests pain medication only. 08/21/17 11:40 Patient re-evaluated, states that toradol did not work and that she is still in pain. Percocet 1 tab PO ordered. 08/21/17 13:01 Patient reports improved pain, states that she wants to go home. Rx written for percocet. Advised outpatient followup. 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 No Sleep Is patient sleeping during reassessment? No Presence of Pain Presence of Pain Yes Pain Scale Used Pain Scale Used Numeric IM Administration Charges Document 08/21/17 10:55 EWO (Rec: 08/21/17 10:55 EWO [id number]) Injection Site MAR Injection Site Left Deltoid Charges for Administration # of IM Administrations 1 Oxycodone/Acetaminophen (Percocet 5/325 Mg Tab) 1 tab PO STAT STA Stop: 08/21/17 11:39 Last Admin: 08/21/17 12:24 Dose: 1 tab MAR Pain Assessment Document 08/21/17 12:24 EWO (Rec: 08/21/17 12:24 EWO [id number]) Pain Reassessment Is this a pain reassessment? Yes Sleep Is patient sleeping during reassessment? No Presence of Pain Presence of Pain Yes Pain Scale Used Pain Scale Used Numeric - Scribe Statement The provider has reviewed the documentation as recorded by the Scribe Ade Mansfieldm. All medical record entries made by the Mylesibgiorgi were at my direction and personally dictated by me. I have reviewed the chart and agree that the record accurately reflects my personal performance of the history, physical exam, medical decision making, and the department course for this patient. I have also personally directed, reviewed, and agree with the discharge instructions and disposition. Disposition/Present on Arrival - Present on Arrival Any Indicators Present on Arrival: No History of DVT/PE: No History of Uncontrolled Diabetes: No Urinary Catheter: No History of Decub. Ulcer: No History Surgical Site Infection Following: None - Disposition Have Diagnosis and Disposition been Completed?: Yes Diagnosis: Hip pain, right Disposition: HOME/ ROUTINE Disposition Time: 13:02 Patient Plan: Discharge Patient Problems: Current Active Problems Problem Status Onset Hip pain, right Acute Condition: GOOD Discharge Instructions (ExitCare): Hip Pain (DC) Additional Instructions: ADRI BEDOYA, thank you for letting us take care of you today. Your provider was Ashley Saldana MD and you were treated for PAIN IN HIP. The emergency medical care you received today was directed at your acute symptoms. If you were prescribed any medication, please fill it and take as directed. It may take several days for your symptoms to resolve. Return to the Emergency Department if your symptoms worsen, do not improve, or if you have any other problems. Please contact your doctor or call one of the physicians/clinics you have been referred to that are listed on the Patient Visit Information form that is included in your discharge packet. Bring any paperwork you were given at discharge with you along with any medications you are taking to your follow up visit. Our treatment cannot replace ongoing medical care by a primary care provider outside of the emergency department. Thank you for allowing the [facility] team to be part of your care today. If you had an X-Ray or CT scan: A Radiologist will review the ED reading if any change in treatment is needed we will contact you. If you had a blood, urine, or wound culture: It will take several days for the results, if any change in treatment is needed we will contact you. If you had an STI test: It will take 48 hours for the results. Please call after 1 week if you have not heard back. Prescriptions: oxyCODONE/Acetaminophen [Percocet 5/325 mg Tab] 1 tab PO Q6H PRN #8 tab PRN Reason: Pain, Severe (8-10) Forms: [facility] ([place]inamese)
[2017-08-21] MEDS ORDERED: Oxycodone/Acetaminophen 5/325 mg Tab PO STA (11:38)
[2017-08-21 13:21] VITALS: RESP 18; TEMP 98.6; O2SAT 99
[2017-08-21 13:23] VITALS: BP 154/76; PULSE 88
== END 2017-08-21 13:21 | disposition home or self-care (01) ==
LOC: ED 10:24
DX: M25.551 Pain in right hip (principal)
CPT/HCPCS: 96372; 99283; J1885

== ENCOUNTER 2018-03-27 08:51 | Day surgery (SDC) | payer MEDICARE, BC ==
[2018-03-27] MEDS ORDERED: Sodium Chloride 0.9% 1,000 ML IV SCH (10:45)
[2018-03-27] MEDS ORDERED: Propofol 10 mg/ml Inj (20 ML) ONE (11:00)
[2018-03-27 11:54] VITALS: O2SAT 99
[2018-03-27 12:17] VITALS: PULSE 58
[2018-03-27 13:19] VITALS: BP 119/71; RESP 16; TEMP 97.8
== END 2018-03-27 13:38 | disposition home or self-care (01) ==
LOC: ENDO 08:51
PROVIDERS: ATTEND Internal Medicine Gastroenterology
DX: K29.50 Unspecified chronic gastritis without bleeding (principal); R10.13 Epigastric pain; K30 Functional dyspepsia; R10.32 Left lower quadrant pain; R19.6 Halitosis; K21.9 Gastro-esophageal reflux disease without esophagitis; Z88.1 Allergy status to other antibiotic agents; Z88.0 Allergy status to penicillin; Z85.038 Personal history of other malignant neoplasm of large intestine; J44.9 Chronic obstructive pulmonary disease, unspecified; M19.90 Unspecified osteoarthritis, unspecified site; M06.9 Rheumatoid arthritis, unspecified; Z86.73 Personal history of transient ischemic attack (TIA), and cerebral infarction without residual deficits
CPT/HCPCS: 43239; 88305; 88312; 88342; J2001; J2704; J7030; J7040

== ENCOUNTER 2018-04-27 09:54 | Outpatient (CLI) | payer MEDICARE, BC | END 2018-04-27 09:55 | disposition home or self-care (01) | LOC: RAD 09:54 ==

== ENCOUNTER 2018-06-30 10:25 | Outpatient (CLI) | payer MEDICARE, BC | END 2018-06-30 10:26 | disposition home or self-care (01) | LOC: RAD 10:25 ==

== ENCOUNTER 2018-07-25 07:38 | Outpatient (CLI) | payer MEDICARE, BC | END 2018-07-25 07:39 | disposition home or self-care (01) | LOC: RAD 07:38 ==